=== PATIENT | male | born 1955 | race Asian ===

== ENCOUNTER 2022-10-18 06:28 | Day surgery (SDC) | payer MEDICARE, BC ==
[~2022-10-18] VITALS: Ht 177.8 cm; Wt 93.0 kg
[~2022-10-18 06:28] MED LIST: AMLO5 PO; ASPI81CH PO; ATEN25 PO; ATOR40TA PO
--- NOTE | 2022-10-18 09:27 | NUR ---
PT RETURNED BACK TO RECOVERY ROOM IN [facility]. RIGHT RADIAL TR BAND SITE SOFT NON-TENDER WITH NO HEMATOMA, NO PULSATILE BLEEDING AND RIGHT WRIST BOARD IN PLACE. PT EATING BREAKFAST. CALL LIGHT IN REACH.
--- NOTE | 2022-10-18 10:22 | NUR ---
DR KAUR IN ROOM TO SEE PT.
--- NOTE | 2022-10-18 10:56 | NUR ---
10 CC OF AIR REMOVED OVER 10 MIN OUT OF NOW DEFLATED RIGHT TR BAND; NO HEMATOMA, NO PULSATILE BLEEDING AND WRIST BOARD IN PLACE. DISCHARGE INSTRUCTIONS REVIEWED AND ALL QUESTIONS ANSWERED.
--- NOTE | 2022-10-18 11:50 | NUR ---
PT GIVEN DC INSTRUCTIONS AND VERBALIZED UNDERSTANDING. IV OUT. PT CHANGED. CLOTH DOT, ARM BOARD, AND SLING APPLIED. PT TAKEN TO LBY VIA WC. FAMILY TO TAKE PT HOME.
== END 2022-10-18 10:45 | disposition home or self-care (01) ==
LOC: MHTC 06:28
DX: I25.10 Atherosclerotic heart disease of native coronary artery without angina pectoris (principal); E78.5 Hyperlipidemia, unspecified; J44.9 Chronic obstructive pulmonary disease, unspecified
CPT/HCPCS: 76937; 93458; 99152; 99153; C1769; C1887; C1894; J1644; J2250; J3010; J7030; J7040; J7050; Q9967